=== PATIENT | female | born 1975 | race Caucasian/White ===

== ENCOUNTER 2017-06-29 13:55 | Inpatient (IN) | payer BC ==
[~2017-06-29] VITALS: Ht 165.1 cm; Wt 125.7 kg
[~2017-06-29 13:55] MED LIST: SPRINTEC1 EACH PO; ZANTAC150 MG PO; ZYRTEC10 M2 PO
[2017-06-29 15:10] LABS: HEMATOCRIT 38.8 % (36.0-46.0); HEMOGLOBIN 13.2 G/DL (11.9-15.5); MCH 29.5 PG (29.0-34.0); MCV 86.6 FL (83-99); PLATELET COUNT 231 K/uL (156-360); RBC DIS.WIDTH-CV 11.8 % (11.8-14.6); RBC DIS.WIDTH-SD 37.3 % (39-53); RED BLOOD COUNT 4.48 M/uL (3.80-5.20); WHITE BLOOD COUNT 10.4 K/uL (4.1-10.2)
[2017-06-29 15:15] LABS: INTER. NORMALIZED RATIO 1.1
[2017-06-29 15:18] LABS: ALBUMIN 3.8 g/dL (3.2-4.8); CHLORIDE 105 mEq/L (99-109); POTASSIUM 3.2 mEq/L (3.7-5.4); SODIUM 141 mEq/L (136-147)
[2017-06-29 15:20] LABS: GLUCOSE 293 mg/dL (70-99)
[2017-06-29 15:21] LABS: TOTAL PROTEIN 7.1 g/dL (6.4-8.3)
[2017-06-29 15:22] LABS: TOTAL BILIRUBIN 0.5 mg/dL (0.0-1.0)
[2017-06-29 15:24] LABS: ALKALINE PHOSPHATASE 82 IU/L (3-129); GFR ESTIMATE (CALCULATED) > 59 mL/min/
[2017-06-29 15:25] LABS: UREA NITROGEN (BUN) 11 mg/dL (9-23)
[2017-06-29 15:26] LABS: AST (GOT) 35 IU/L (2-34)
[2017-06-29 15:27] LABS: ALT (GPT) 31 IU/L (3-49)
[2017-06-29 15:33] LABS: TROP-I INTERPRETATION INDETERMINATE; TROPONIN-I 0.38 ng/mL (0.0-0.30)
[2017-06-29] MEDS ORDERED: ELAVIL10 MG PO (18:51)
[2017-06-29] MEDS ORDERED: ZANAFLEX2 M1 PO (18:51)
[2017-06-29] MEDS ORDERED: GLUCOPHAGE500 MG PO (18:52)
[2017-06-29] MEDS ORDERED: NAPROSYN500 MG PO (18:53)
[2017-06-29] MEDS ORDERED: ONCE DAILY1 EACH PO (18:54)
[2017-06-29] MEDS ORDERED: ASCORBIC ACID500 M3 PO (18:55)
[2017-06-29] MEDS ORDERED: B-COMPLEX-VITA1 EACH PO (19:00)
[2017-06-29 22:11] VITALS: BP 129/86
[2017-06-30 01:13] LABS: TROP-I INTERPRETATION INDETERMINATE; TROPONIN-I 0.42 ng/mL (0.0-0.30)
[2017-06-30 03:17] VITALS: BP 117/81
[2017-06-30 06:57] LABS: TROP-I INTERPRETATION NEGATIVE
[2017-06-30 07:11] LABS: HEMATOCRIT 34.1 % (36.0-46.0); HEMOGLOBIN 11.5 G/DL (11.9-15.5); MCH 29.3 PG (29.0-34.0); MCHC 33.7 G/DL (30.0-36.0); MCV 86.8 FL (83-99); PLATELET COUNT 211 K/uL (156-360); RBC DIS.WIDTH-CV 11.9 % (11.8-14.6); RBC DIS.WIDTH-SD 38.2 % (39-53); RED BLOOD COUNT 3.93 M/uL (3.80-5.20); WHITE BLOOD COUNT 9.4 K/uL (4.1-10.2)
[2017-06-30 07:32] LABS: PTT 53.6 SEC (25-37)
[2017-06-30 08:28] VITALS: BP 134/71
[2017-06-30 10:05] LABS: CHLORIDE 110 MEQ/L (99-109); POTASSIUM 3.6 MEQ/L (3.7-5.4); SODIUM 143 MEQ/L (136-147)
[2017-06-30 10:11] LABS: CREATININE 0.8 MG/DL (0.6-1.3); GFR ESTIMATE (CALCULATED) > 59 mL/min/; GLUCOSE 187 mg/dL (70-99); UREA NITROGEN (BUN) 14 mg/dL (9-23)
[2017-06-30 11:33] LABS: INTER. NORMALIZED RATIO 1.2
[2017-06-30 11:47] VITALS: BP 134/71
[2017-06-30 15:52] VITALS: BP 127/81
[2017-06-30 20:36] VITALS: BP 131/92
[2017-06-30 23:45] VITALS: BP 119/79
[2017-07-01 04:31] VITALS: BP 107/79
[2017-07-01 06:32] LABS: INTER. NORMALIZED RATIO 1.3
[2017-07-01 06:35] LABS: PTT 67.6 SEC (25-37)
[2017-07-01 06:36] LABS: HEMOGLOBIN 10.9 G/DL (11.9-15.5); MCV 87.8 FL (83-99); PLATELET COUNT 176 K/uL (156-360); RBC DIS.WIDTH-CV 11.9 % (11.8-14.6); RBC DIS.WIDTH-SD 38.5 % (39-53); RED BLOOD COUNT 3.76 M/uL (3.80-5.20); WHITE BLOOD COUNT 7.2 K/uL (4.1-10.2)
[2017-07-01 08:09] LABS: CHLORIDE 103 MEQ/L (99-109); CREATININE 0.8 MG/DL (0.6-1.3); GFR ESTIMATE (CALCULATED) > 59 mL/min/; GLUCOSE 162 mg/dL (70-99); POTASSIUM 3.5 MEQ/L (3.7-5.4); SODIUM 136 MEQ/L (136-147); UREA NITROGEN (BUN) 15 mg/dL (9-23)
[2017-07-01 08:20] VITALS: BP 117/84
[2017-07-01 11:04] VITALS: BP 112/74
[2017-07-01 13:48] LABS: HEMOGLOBIN A1c (GLYCOHEMOGLOB) 7.2 % (Below 5.7)
[2017-07-01 16:34] VITALS: BP 161/94
[2017-07-01 18:14] VITALS: BP 161/94
[2017-07-01 20:05] VITALS: BP 132/85
[2017-07-02 00:21] VITALS: BP 132/85
[2017-07-02 04:25] VITALS: BP 110/66
[2017-07-02 07:03] LABS: HEMATOCRIT 31.8 % (36.0-46.0); HEMOGLOBIN 10.6 G/DL (11.9-15.5); MCH 28.7 PG (29.0-34.0); MCHC 33.3 G/DL (30.0-36.0); MCV 86.2 FL (83-99); PLATELET COUNT 190 K/uL (156-360); RBC DIS.WIDTH-CV 11.7 % (11.8-14.6); RBC DIS.WIDTH-SD 36.5 % (39-53); RED BLOOD COUNT 3.69 M/uL (3.80-5.20)
[2017-07-02 07:11] LABS: INTER. NORMALIZED RATIO 2.3
[2017-07-02 07:16] LABS: CHLORIDE 106 MEQ/L (99-109); CREATININE 0.7 MG/DL (0.6-1.3); GFR ESTIMATE (CALCULATED) > 59 mL/min/; GLUCOSE 153 mg/dL (70-99); POTASSIUM 3.9 MEQ/L (3.7-5.4); SODIUM 139 MEQ/L (136-147); UREA NITROGEN (BUN) 12 mg/dL (9-23)
[2017-07-02 07:20] LABS: PTT 33.7 SEC (25-37)
[2017-07-02 08:00] VITALS: BP 130/85
[2017-07-02 12:09] VITALS: BP 136/85
[2017-07-02 15:00] VITALS: BP 138/88
[2017-07-03 00:10] VITALS: BP 109/73
[2017-07-03 06:45] VITALS: BP 125/85
[2017-07-03 07:06] LABS: INTER. NORMALIZED RATIO 2.6
[2017-07-03 07:09] LABS: PTT 42.9 SEC (25-37)
[2017-07-03 07:31] LABS: BASOPHIL (%) 0.3 % (0-1); EOSINOPHIL (%) 2.6 % (0-5); EOSINOPHIL COUNT 0.2 K/uL (0-0.3); HEMOGLOBIN 10.6 G/DL (11.9-15.5); IMMATURE GRANULOCYTE (%) 0.5 % (0.0-0.7); LYMPHOCYTE (%) 36.3 % (15-42); LYMPHOCYTE COUNT 2.3 K/uL (1.0-2.8); MCH 29.6 PG (29.0-34.0); MCHC 33.1 G/DL (30.0-36.0); MCV 89.4 FL (83-99); MONOCYTE (%) 5.1 % (3-12); MONOCYTE COUNT 0.3 K/uL (0-0.8); NEUTROPHIL (%) 55.2 % (45-76); NEUTROPHIL COUNT 3.6 K/uL (1.8-6.4); RBC DIS.WIDTH-CV 11.9 % (11.8-14.6); RED BLOOD COUNT 3.58 M/uL (3.80-5.20); WHITE BLOOD COUNT 6.4 K/uL (4.1-10.2)
[2017-07-03 07:37] LABS: PLAT.SUFFICIENCY DECREASED
[2017-07-03 07:51] LABS: ALBUMIN 2.9 G/DL (3.2-4.8); ALKALINE PHOSPHATASE 65 IU/L (3-129); ALT (GPT) 52 IU/L (3-49); AST (GOT) 36 IU/L (2-34); CHLORIDE 104 MEQ/L (99-109); CREATININE 0.7 MG/DL (0.6-1.3); GFR ESTIMATE (CALCULATED) > 59 mL/min/; GLUCOSE 150 mg/dL (70-99); POTASSIUM 4.2 MEQ/L (3.7-5.4); SODIUM 141 MEQ/L (136-147); TOTAL BILIRUBIN 0.3 MG/DL (0.0-1.0); TOTAL PROTEIN 5.3 G/DL (6.4-8.3); UREA NITROGEN (BUN) 11 mg/dL (9-23)
[2017-07-03 07:57] LABS: PLATELET COUNT 130 K/uL (156-360)
[2017-07-03] MEDS ORDERED: COUMADIN5 MG PO (09:09)
[2017-07-03 11:45] VITALS: BP 156/88
== END 2017-07-03 12:50 | disposition home or self-care (01) | DRG 176 ==
LOC: EME 13:55 → 5EAST 19:45 → EDOF 19:45 → ENRESERV 19:45 → 4EAST 19:45 → ENRESERV 20:20 → 4EAST 22:02 → ENRESERV 07-01 10:17 → 5EAST 07-01 16:00 → ENPENDDIS 07-03 → 5EAST 07-03 12:50
PROVIDERS: Emergency Medicine; Family Medicine; Hospitalist
DX: I26.99 Other pulmonary embolism without acute cor pulmonale (principal); I82.442 Acute embolism and thrombosis of left tibial vein; I82.432 Acute embolism and thrombosis of left popliteal vein; I24.8 Other forms of acute ischemic heart disease; I95.9 Hypotension, unspecified; D64.9 Anemia, unspecified; E87.6 Hypokalemia; E11.9 Type 2 diabetes mellitus without complications; E66.01 Morbid (severe) obesity due to excess calories; Z68.41 Body mass index [BMI] 40.0-44.9, adult; K21.9 Gastro-esophageal reflux disease without esophagitis; G43.909 Migraine, unspecified, not intractable, without status migrainosus; I49.3 Ventricular premature depolarization; I51.7 Cardiomegaly; Z79.3 Long term (current) use of hormonal contraceptives; Z79.84 Long term (current) use of oral hypoglycemic drugs; Z74.09 Other reduced mobility; Z90.49 Acquired absence of other specified parts of digestive tract; Z98.890 Other specified postprocedural states; Z82.49 Family history of ischemic heart disease and other diseases of the circulatory system; Z82.5 Family history of asthma and other chronic lower respiratory diseases; Z83.3 Family history of diabetes mellitus
CPT/HCPCS: 71275; 80048; 80053; 82948; 83036; 84484; 85025; 85027; 85610; 85730; 93005; 93306; 93970; 99281; 99285; J1815; J7030